=== PATIENT | female | born 1960 | race Caucasian/White ===

== ENCOUNTER 2017-03-30 14:36 | Emergency (ER) | payer OTHER ==
[2017-03-30 15:26] LABS: Hematocrit 37.2 % (37.0-47.0); Hemoglobin 12.9 gm/dL (12.5-16.0); Mean Cell Volume 92.5 fl (78-100); Mean Corpuscular Hemoglobin 32.1 pg (27-31); Mean Corpuscular Hgb Conc 34.7 g/dl (32-36); Mean Platelet Volume 10.3 fl (6.0-9.5); Neutrophil # 4.3 K/mm3 (1.3-6.0); Neutrophil % 63.2 % (42-75.0); Platelet Count 91 K/mm3 (150-450); Red Blood Count 4.02 M/mm3 (4.2-5.4); Red Cell Distribution Width 13.2 % (11.5-14.0); White Blood Count 6.8 K/mm3 (4.0-10.5)
[2017-03-30 15:44] LABS: Anion Gap 17.4 mmol/L (6.8-13.8); Bilirubin, Total 1.1 mg/dL (0.0-1.1); Ca. Corrected For Albumin 8.4 mg/dL (8.4-10.2); Calcium * 8.7 mg/dL (7.9-10.9); Potassium 3.4 mmol/L (3.4-4.6); Total Protein 7.9 gm/dL (6.2-8.2)
--- NOTE | 2017-03-30 15:53 | ERNOTE ---
Syncope ER HPI Date of Service: 03/30/17 Stated Complaint: SYNCOPAL Time Seen by Provider: 03/30/17 14:52 Source: patient, RN notes reviewed Exam Limitations: no limitations Immunizations: IMMUNIZATION HX Immunizations Up to Date Yes History of Influenza Vaccine No Hx Pneumococcal Vaccination No Allergies/Adverse Reactions: Allergies No Known Allergies Allergy (Verified 03/30/17 14:39) Home Medications: HOME MEDICATIONS Multivitamin [Multivitamins] 1 each PO DAILY 03/30/17 [Last Taken Unknown] - History of Present Illness Narrative: 56 y/o female brought to the ED by her for a syncopal episode. She was stung by a bee on her right middle finger. She began to feel funny and sat down. She passed out briefly at the table. She came to quickly and then passed out again for a few seconds. She denies any injury d/t the syncope. It was witnessed by her . She denies any history of prior syncopal episodes. She has had a large local reaction to a bee sting on her face in the remote past , but has never had anaphylactic type symptoms. She reports having 2 beers today and having eaten a sandwich not long before the episode. Prior Episodes: Present: no prior history Symptoms prior to episode: Present: light headedness Activity at time of episode: Present: sitting Character of event: Present: brief (seconds) Current Symptoms: Present: back to normal Prior Treament: Denies: recently seen Review of Systems - Review of Systems Constitutional: Absent: recent illness, fever, chills, fatigue, malaise EYE: Absent: eye pain, vision changes ENT: Present: no symptoms reported Respiratory: Absent: shortness of breath, cough Cardiology: Absent: chest pain, palpitations Gastrointestinal/Abdominal: Absent: nausea, vomiting, diarrhea, abdominal pain Genitourinary: Present: no symptoms reported Musculoskeletal: Absent: muscle pain, joint pain Skin: Absent: rash, lesions, lumps, change in color Neurological: Absent: headache, weakness Endocrine: Present: no symptoms reported Hematologic/Lymphatic: Present: no symptoms reported Psych: Absent: anxiety, depressed - Patient's Past Medical History Patient History - Medical: No pertinent hx Patient History - Cardiac/Respiratory: No pertinent hx Patient History - Cancer: No Hx of Cancer Patient History - Surgical Procedures: Cholecystectomy Patient History - Other: None LMP (females 10-50): Menopausal - Social History Living Situations: home Abuse History: No History of abuse Psych History: No pertinent hx Smoking Status: Never smoker Have you smoked in the past 12 months: No Do you dip or chew tobacco: No Alcohol Use: other Drug Use: none - Immunizations Immunizations Up to Date: Yes Hx Pneumococcal Vaccination: No History of Influenza Vaccine: No Physical Exam - Physical Exam General Appearance: Present: wd/wn, alert, no apparent distress Head Exam: Present: normal inspection, no evidence of injury Eye Exam: Normal inspection: bilateral, PERRL: bilateral Ears, Nose, Throat: Present: normal ENT inspection Neck: Present: normal inspection, nontender, supple, full range of motion Respiratory: Present: no respiratory distress, normal breath sounds, no accessory muscle use, lungs clear Cardiovascular/Chest: Present: regular rate, rhythm, no murmur, normal peripheral pulses Extremity Exam: Present: normal except - - erythema/edema to right middle finger Neurological Exam: Present: alert, oriented, normal mood/affect, no motor/ sensory deficits Skin Exam: Present: normal color, warm/dry ED Progress - Results and Orders Patient's Lab Results:: I have reviewed the patient's lab results. - Vital Signs Patient's Vital Signs:: I have reviewed the patient's vital signs. Vital Signs: Vital Signs 03/30/17 03/30/17 03/30/17 14:40 14:48 14:50 Temperature 37 C Pulse Rate 96 91 106 H Respiratory 16 Rate Blood Pressure 133/87 - EKG EKG: NSR EKG read: Reviewed by me - Progress/Reassessment Chief Complaint: Syncopal Episode Progress:: Improved Progress Note-Subjective: 03/30/17 16:05 Labwork and EKG are unremarkable. Patient is not orthostatic. Denies any respiratory difficulty or airway edema. Departure Clinical Impression: Bee sting Qualifiers: Encounter type: initial encounter Injury intent: accidental or unintentional Qualified Code(s): T63.441A - Toxic effect of venom of bees, accidental ( unintentional), initial encounter Episode of syncope Qualifiers: Syncope type: unspecified Qualified Code(s): R55 - Syncope and collapse - Departure Disposition: Home self-care Condition: Good Instructions: Syncope, [id number], Bee, Wasp, or Hornet Sting Additional Instructions: Ice to bee sting as needed Cortisone 10 cream and Benadryl cream may help with swelling/itching Referrals: Maria L Winslow MD [Primary Care Provider] -
[2017-03-30 16:14] VITALS: BP 135/93
== END 2017-03-30 16:07 | disposition home or self-care (01) ==
LOC: ER 14:36
DX: T63.441A Toxic effect of venom of bees, accidental (unintentional), initial encounter (principal); Y92.9 Unspecified place or not applicable; R55 Syncope and collapse

== ENCOUNTER 2019-04-13 11:51 | Inpatient (IN) ==
--- NOTE | 2019-04-13 12:10 | ERNOTE ---
Abdominal HPI - Narrative Date of Service: 04/13/19 - General Chief Complaint: Abdominal Pain Time Seen by Provider: 04/13/19 12:09 Source: patient Exam Limitations: no limitations - Immun/Allergies/Home Medications Immunizatons: IMMUNIZATION HX Immunizations Up to Date Yes History of Influenza Vaccine No Hx Pneumococcal Vaccination No Allergies/Adverse Reactions: Allergies No Known Allergies Allergy (Verified 05/13/18 10:07) Home Medications: HOME MEDICATIONS Multivitamin [Multivitamins] 1 ea PO DAILY 03/30/17 [Last Taken Unknown] acetaminophen 325 mg tablet 325 mg PO Q6H PRN 05/01/18 [Last Taken Unknown] - Pain Score Pain Score #1 Pain Score: 8 Abdominal Pain Onset Location: periumbilical Pain Radiation: RUQ, LUQ - History of Present Illness Narrative: The patient is a 58 year old female who presents for abdominal pain which has been present for 3 days. There are associated symptoms of umbilical hernia that appeared approximately 2 weeks ago, and tightness to RUQ and LUQ (similar to when they removed fluid from her abdomen), she was mildly short of breath upon awakening today, but this resolved shortly after onset with no intervention. The patient reports pain 8/10, and has progressively worsened ove r the last 3 days. There are no alleviating factors. Initially, patient made a splint for the hernia using 2 washers, a kleenex and packaging tape which helped, but now she feels this is causing more irritation. She has been taking extra strength Tylenol Q2H while awake since Saturday which is no longer managing the pain. There are aggravating factors of movement. Previous treatments have included: self made "splint" and extra strength Tylenol. The past medical history includes: biliary cirrhosis and ascites. The social history is positive for current alcohol use a few times a month. The patient has had no ill contacts. She denies nausea, vomiting, diarrhea, or constipation. Last BM this am. She does endorse decreased appetite. Timing: getting worse Quality: severe Activities at Onset: none Modifying Factors - (Improves): Present: analgesics - extra strength tylenol, other - patient made splint for hernia using 2 washers and packing tape which helped initally Modifying Factors - (Worsens): Present: movement Associated Symptoms: Present: denies symptoms - hernia noted 2 weeks ago, loss of appetite, shortness of breath - mild shortness of breath upon wakening, resolved without intervention, swelling/mass in abdomen. Absent: back pain, chest pain, diarrhea-gross blood, diarrhea-mucous, fever/chills, nausea, vomiting Prior Abdominal Problems: Present: other - biliary cirrhosis and ascites Review of Systems - Review of Systems Constitutional: Present: no symptoms reported. Absent: recent illness, fever, chills EYE: Present: other - coworkers noticed eyes were yellow ENT: Present: no symptoms reported Respiratory: Present: shortness of breath. Absent: cough Cardiology: Present: no symptoms reported. Absent: chest pain, palpitations, syncope Gastrointestinal/Abdominal: Present: abdominal pain, eating less. Absent: nausea, vomiting, diarrhea, constipation Genitourinary: Present: no symptoms reported. Absent: dysuria Musculoskeletal: Present: no symptoms reported Skin: Present: no symptoms reported Neurological: Present: no symptoms reported. Absent: dizziness/light- headedness, numbness, tingling Endocrine: Present: no symptoms reported Hematologic/Lymphatic: Present: no symptoms reported Psych: Present: no symptoms reported All Other Systems: All systems neg except as marked Medical History (Updated 04/13/19 @ 15:09 by NATALIA Pierre) History of ascites (Resolved) Onset Date: 08/19/14 Biliary cirrhosis (Resolved) Onset Date: Unknown Surgical History: Surgical History (Updated 04/29/18 @ 12:09 by Lisa Morel CMA) History of cholecystectomy Onset Date: ~2013 Family History: Family History (Updated 04/29/18 @ 12:10 by Lisa Morel CMA) Father , age 48 Myocardial infarction Mother , age 65 Heart disease Brother , age 55 Myocardial infarction Social History: (Last Reviewed 04/13/19 @ 13:06 by NATALIA Pierre) Social History: Marital status: Service: No Tobacco: Smoking Status: Never smoker Alcohol: alcohol intake: current alcohol intake frequency: a few times a month Substance Use: substance use type: does not use Dietary Habits: caffeine: No Physical Exam - Physical Exam General Appearance: Present: wd/wn, alert, no apparent distress Head Exam: Present: normal inspection Eye Exam: PERRL: bilateral, Scleral icterus: bilateral Neck: Present: normal inspection Respiratory: Present: no respiratory distress, normal breath sounds, no accessory muscle use, chest nontender, lungs clear Cardiovascular/Chest: Present: regular rate, rhythm Gastrointestinal/Abdominal: Present: tenderness - RUQ and periumbilical, abnormal bowel sounds - hyperactive, distended, hernia - umbilical, easily reduced, mildly tender, hepatomegaly Back Exam: Present: normal inspection Extremity Exam: Present: normal inspection Neurological Exam: Present: alert, oriented, normal mood/affect, no motor/sensory deficits Skin Exam: Present: jaundice Progress - Date and Time Seen: Date and Time: 04/13/19 13:43 Message left with nurse to discuss patient plan of care, awaiting return call. 04/13/19 13:57 Discussed case with , will admit if able to obtain diagnostic paracentesis for possible SBP. Discussed with and instructed to obtain US to review of ascites fluid. Also discussed patient risk due to low platelet count and elevation to INR. Will discuss risks along with benefits with patient prior to procedure if able. It was discussed with patient regarding risks for infection, perforation and bleeding with paracentesis procedure. 04/13/19 15:13 Fluid removed by during US guided paracentesis and orders placed for fluid to lab. Discussed with and will initiate antibiotic treatment while testing pending. Will admit for abdominal pain with ascites, abnormal electrolytes and UTI. - Results and Orders Patient's Lab Results:: I have reviewed the patient's lab results. - Vital Signs Patient's Vital Signs:: I have reviewed the patient's vital signs. Vital Signs: Vital Signs 04/13/19 11:56 Temperature 37.0 C Pulse Rate 104 H Respiratory Rate 16 Blood Pressure 149/84 H O2 Sat by Pulse Oximetry 99 - EKG EKG #1 EKG: NSR - rate 91, nonspecific ST T wave changes EKG read: Reviewed by me - X-Ray X-Ray #1 X-Ray: abdomen Interpretation: Reviewed by me X-ray Comments: IMPRESSION: 1. Air-fluid levels of the upper abdomen, which could represent localized ileus due to adjacent inflammatory changes, enteritis, and less likely mechanical obstruction. 2. Radiodense material within the distal small bowel/proximal colon as above. 3. Hepatomegaly suggested. 4. Additional comments are as above. Electronically signed by Hetal Rivas M.D. - CT/Ultrasound CT/Ultrasound Narrative: FINDINGS/IMPRESSION: Patient has mild to moderate ascites noted, with the largest pockets in the bilateral lower quadrants. Electronically signed by Hetal Rivas M.D.. - Progress/Reassessment Chief Complaint: Abdominal Pain Departure Clinical Impression: Hyponatremia, Hypokalemia Abdominal pain Qualifiers: Abdominal location: periumbilical Qualified Code(s): R10.33 - Periumbilical pain Ascites Qualifiers: Ascites type: other type Qualified Code(s): R18.8 - Other ascites Urinary tract infection Qualifiers: Urinary tract infection type: site unspecified Hematuria presence: without hematuria Qualified Code(s): N39.0 - Urinary tract infection, site not specified - Departure Disposition: Still a patient Condition: Stable Referrals: Maria L Winslow MD [Primary Care Provider] -
[2019-04-13 12:33] LABS: Hematocrit 29.6 % (37.0-47.0); Hemoglobin 10.4 gm/dL (12.5-16.0); Mean Cell Volume 102.4 fl (78-100); Mean Corpuscular Hgb Conc 35.1 g/dl (32-36); Mean Platelet Volume 12.1 fl (8-12.5); Neutrophil # 12.7 K/mm3 (1.3-6.0); Neutrophil % 86.6 % (42-75.0); Platelet Count 74 K/mm3 (150-450); Red Blood Count 2.89 M/mm3 (4.2-5.4); Red Cell Distribution Width 17.1 % (11.5-14.0); White Blood Count 14.6 K/mm3 (4.0-10.5)
[2019-04-13 12:49] LABS: Albumin * 2.8 gm/dl (3.4-5.0); Anion Gap 17.5 mmol/L (6.8-13.8); BUN/Creatinine Ratio 10.2 (9.0-21.6); Bilirubin, Total 16.7 mg/dL (0.0-1.1); Calcium * 8.4 mg/dL (7.9-10.9); Carbon Dioxide 21.4 mmol/L (24-32.6); Potassium 2.9 mmol/L (3.4-4.6); Total Protein 6.8 gm/dL (6.2-8.2)
[2019-04-13 13:10] LABS: Urine Bilirubin 6 mg/dl (NEGATIVE); Urine Blood 25 /ul (NEGATIVE); Urine Ketone 5 mg/dL (NEGATIVE); Urine Protein 30 mg/dL (NEGATIVE); Urine Urobilinogen 4 EU/dl (NORMAL); Urine pH 6.5 pH (5.0-7.0)
[2019-04-13 13:12] LABS: Urine Appearance Slightly Cloudy (CLEAR); Urine Color Orange; Urine Nitrite Positive (NEGATIVE)
[2019-04-13] MEDS ORDERED: NORMAL SALINE 1,000 ML IV PRN (13:12)
[2019-04-13 13:13] LABS: Urine Bacteria 2+; Urine RBC None Seen /hpf (0-5); Urine WBC 0-5 /hpf (0-5)
[2019-04-13 13:22] LABS: Prothrombin Time (Patient) 17.3 Seconds (9.1-10.7)
[2019-04-13 13:30] LABS: INR 1.79 INR (0.92-1.08); Partial Thrombolplastin Time 28.4 Seconds (24-32)
[2019-04-13] MEDS ORDERED: CEFOTAXIME SODIUM IV ONE (15:10)
[2019-04-13] MEDS ORDERED: WATER FOR INJECTION STERILE IV ONE (15:10)
[2019-04-13] MEDS: POTASSIUM CHLORIDE IN WATER 100 ML IV SCH ×4 (15:17→19:09)
[2019-04-13 15:36] LABS: Body Fluid WBC 129 /uL (0-1000)
[2019-04-13 16:01] LABS: Body Fluid Appearance SLIGHTLY CLOUDY (CLEAR)
[2019-04-13 16:02] LABS: Body Fluid Color YELLOW (COLORLESS)
--- NOTE | 2019-04-13 17:50 | HP ---
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 4 days prior to admission the patient started having some dull, lower abdominal pain, 2-3 over 10, not associated with nausea, vomiting, diarrhea, or constipation. Her last bowel movement was this morning. Her friend also noticed that she was getting yellowish on her eyes. Today her pain got worse 8- 9/10 and she noticed her umbilical hernia which she noticed 2 weeks ago popped out even more. She went to our emergency room where her hernia was reduced easily. Her white blood cell count was elevated, AST and alkaline phosphatase were elevated, ALT was normal but her total bilirubin was 16.7. She was noted to have a distended abdomen. Her ultrasound showed moderate ascites and paracentesis was done and they were able to remove 180 mL of fluid. She was then admitted for further evaluation and treatment. Medical History (Updated 04/13/19 @ 17:59 by Quique Esquivel MD) History of ascites (Resolved) Onset Date: 08/19/14 Biliary cirrhosis (Resolved) Onset Date: Unknown Surgical History: Surgical History (Updated 04/13/19 @ 17:50 by Quique Esquivel MD) History of cholecystectomy Onset Date: ~2013 Family History: Family History (Updated 04/29/18 @ 12:10 by Lisa Morel CMA) Father , age 48 Myocardial infarction Mother , age 65 Heart disease Brother , age 55 Myocardial infarction Social History: (Last Reviewed 04/13/19 @ 16:26 by Kayla Matthews RN) Social History: Marital status: Service: No Tobacco: Smoking Status: Never smoker Alcohol: alcohol intake: current alcohol intake frequency: a few times a month Substance Use: substance use type: does not use Dietary Habits: caffeine: No Review Of Systems (GEN) - Review of Systems Generalized/Overall Review: Absent: Weakness, Chills EENTM: Absent: Blurred Vision Respiratory: Absent: Cough, Shortness of Breath, Orthopnea, Wheezing Cardiac: Absent: Chest Pain, Edema, Palpitations Abdominal: Present: Abdominal Pain. Absent: Nausea, Vomiting, Hematemesis, Diarrhea, Melena Genitourinary: Absent: Urgency, Frequency Musculoskeletal: Absent: Joint Pain, Back Pain Neurological: Absent: Headache Skin: Absent: Lesions, Rash Endocrine: Absent: Intolerance to Cold, Intolerance to Heat Misc: All systems neg except as marked Immunizations: IMMUNIZATION HX Immunizations Up to Date Yes History of Influenza Vaccine No Hx Pneumococcal Vaccination No Allergies/Adverse Reactions: Allergies Allergy/AdvReac Type Severity Reaction Status Date / Time No Known Allergies Allergy Verified 05/13/18 10:07 Home Medications: HOME MEDICATIONS Multivitamin [Multivitamins] 1 ea PO DAILY 03/30/17 [Last Taken 04/12/19] acetaminophen 325 mg tablet 325 mg PO Q6H PRN 05/01/18 [Last Taken 04/13/19] Exam - Exam Vital Signs: Vital Signs - Last Taken Temp 36.9 C 04/13/19 16:41 Pulse 93 04/13/19 16:41 Resp 18 04/13/19 16:41 BP 129/62 04/13/19 16:41 Pulse Ox 99 04/13/19 16:41 Constitutional: Present: Alert, Oriented x3, Cooperative ENT Exam: Present: hearing grossly normal Eye Exam: bilateral eye: normal inspection, PERRL, EOMI, scleral icterus Neck: Present: supple. Absent: lymphadenopathy (R), lymphadenopathy (L) Respiratory: Present: decreased breath sounds, No rales, No wheezing Cardiovascular/Chest: Present: regular rate, rhythm, no JVD, no murmur Abdomen: Present: tender - oower abdominal area, firm, negative Alberts sign, other - positive ascites, distended, hernia - umbilical , remans reduced. Absent: rebound tenderness Extremity: Present: no calf tenderness, pedal edema Diagnostic Studies: Abnormal Lab Results 04/13/19 04/13/19 04/13/19 Range/Units 12:30 12:30 12:30 WBC 14.6 H (4.0-10.5) K/mm3 RBC 2.89 L (4.2-5.4) M/mm3 Hgb 10.4 L (12.5-16.0) gm/dL Hct 29.6 L (37.0-47.0) % MCV 102.4 H (78-100) fl MCH 36.0 H (27-31) pg RDW 17.1 H (11.5-14.0) % Plt Count 74 L (150-450) K/mm3 Immature Gran % (Auto) 0.70 H (0.001-0.429) % Immature Gran # (Auto) 0.10 H (0.000-0.0310) K/mm3 Neutrophils % 86.6 H (42-75.0) % Lymphocytes % 5.9 L (20-51) % Neutrophils # 12.7 H (1.3-6.0) K/mm3 Lymphocytes # 0.87 L (1.5-3.5) k/mm3 PT 17.3 H (9.1-10.7) Seconds INR (Anticoag Therapy) 1.79 H (0.92-1.08) INR Sodium 128 L (132-142) mmol/L Plasma Sodium 128 L (130-142) mmol/L Potassium 2.9 L (3.4-4.6) mmol/L Chloride 92 L (97-106) mmol/L Carbon Dioxide 21.4 L (24-32.6) mmol/L Anion Gap 17.5 H (6.8-13.8) mmol/L Random Glucose 114 H (70-110) mg/dL Total Bilirubin 16.7 H (0.0-1.1) mg/dL AST 166 H (0-48) U/L Alkaline Phosphatase 227 H (50-170) U/L Albumin 2.8 L (3.4-5.0) gm/dl Urine Protein (NEGATIVE) mg/dL Urine Glucose (UA) (NEGATIVE) mg/dL Urine Blood (NEGATIVE) /ul Urine Nitrate (NEGATIVE) Urine Bilirubin (NEGATIVE) mg/dl Urine Urobilinogen (NORMAL) EU/dl Ur Leukocyte Esterase (NEGATIVE) /ul Ur Epithelial Cells (0-5) /hpf Urine Bacteria (NONE) Fluid RBC (0-1000) /uL 04/13/19 04/13/19 Range/Units 12:40 14:47 WBC (4.0-10.5) K/mm3 RBC (4.2-5.4) M/mm3 Hgb (12.5-16.0) gm/dL Hct (37.0-47.0) % MCV (78-100) fl MCH (27-31) pg RDW (11.5-14.0) % Plt Count (150-450) K/mm3 Immature Gran % (Auto) (0.001-0.429) % Immature Gran # (Auto) (0.000-0.0310) K/mm3 Neutrophils % (42-75.0) % Lymphocytes % (20-51) % Neutrophils # (1.3-6.0) K/mm3 Lymphocytes # (1.5-3.5) k/mm3 PT (9.1-10.7) Seconds INR (Anticoag Therapy) (0.92-1.08) INR Sodium (132-142) mmol/L Plasma Sodium (130-142) mmol/L Potassium (3.4-4.6) mmol/L Chloride (97-106) mmol/L Carbon Dioxide (24-32.6) mmol/L Anion Gap (6.8-13.8) mmol/L Random Glucose (70-110) mg/dL Total Bilirubin (0.0-1.1) mg/dL AST (0-48) U/L Alkaline Phosphatase (50-170) U/L Albumin (3.4-5.0) gm/dl Urine Protein 30 H (NEGATIVE) mg/dL Urine Glucose (UA) 100 H (NEGATIVE) mg/dL Urine Blood 25 H (NEGATIVE) /ul Urine Nitrate Positive H (NEGATIVE) Urine Bilirubin 6 H (NEGATIVE) mg/dl Urine Urobilinogen 4 H (NORMAL) EU/dl Ur Leukocyte Esterase 75 H (NEGATIVE) /ul Ur Epithelial Cells 10-25 H (0-5) /hpf Urine Bacteria 2+ H (NONE) Fluid RBC Greater than 1000.0 H (0-1000) /uL Microbiology 04/13/19 14:47 Gram Stain - Final Peritoneal Fluid Laboratory Results WBC 14.6 K/mm3 (4.0-10.5) H 04/13/19 12:30 RBC 2.89 M/mm3 (4.2-5.4) L 04/13/19 12:30 Hgb 10.4 gm/dL (12.5-16.0) L 04/13/19 12:30 Hct 29.6 % (37.0-47.0) L 04/13/19 12:30 MCV 102.4 fl (78-100) H 04/13/19 12:30 MCH 36.0 pg (27-31) H 04/13/19 12:30 MCHC 35.1 g/dl (32-36) 04/13/19 12:30 RDW 17.1 % (11.5-14.0) H 04/13/19 12:30 Plt Count 74 K/mm3 (150-450) L 04/13/19 12:30 MPV 12.1 fl (8-12.5) 04/13/19 12:30 Immature Gran % (Auto) 0.70 % (0.001-0.429) H 04/13/19 12:30 Immature Gran # (Auto) 0.10 K/mm3 (0.000-0.0310) H 04/13/19 12:30 86.6 % (42-75.0) H 04/13/19 12:30 5.9 % (20-51) L 04/13/19 12:30 6.5 % (0.0-9) 04/13/19 12:30 0.0 % (0.0-3.0) 04/13/19 12:30 0.3 % (0.0-1.0) 04/13/19 12:30 Nucleated RBC % 0.0 k/mm3 (0-1) 04/13/19 12:30 12.7 K/mm3 (1.3-6.0) H 04/13/19 12:30 0.87 k/mm3 (1.5-3.5) L 04/13/19 12:30 1.0 k/mm3 (0.0-1.0) 04/13/19 12:30 0.0 k/mm3 (0.0-0.7) 04/13/19 12:30 Absolute Basophils 0.0 k/mm3 (0.0-0.1) 04/13/19 12:30 PT 17.3 Seconds (9.1-10.7) H 04/13/19 12:30 INR (Anticoag Therapy) 1.79 INR (0.92-1.08) H 04/13/19 12:30 PTT (Debra) 28.4 Seconds (24-32) 04/13/19 12:30 Sodium 128 mmol/L (132-142) L 04/13/19 12:30 128 mmol/L (130-142) L 04/13/19 12:30 Potassium 2.9 mmol/L (3.4-4.6) L 04/13/19 12:30 Chloride 92 mmol/L (97-106) L 04/13/19 12:30 Carbon Dioxide 21.4 mmol/L (24-32.6) L 04/13/19 12:30 17.5 mmol/L (6.8-13.8) H 04/13/19 12:30 BUN 6 mg/dL (3-23) 04/13/19 12:30 0.59 mg/dL (0.4-1.4) 04/13/19 12:30 Est GFR (Non-Af Amer) 112 mL/min (60-130) D 04/13/19 12:30 10.2 (9.0-21.6) 04/13/19 12:30 114 mg/dL (70-110) H 04/13/19 12:30 Calcium 8.4 mg/dL (7.9-10.9) 04/13/19 12:30 Calcium Adj for Albumin 9.0 mg/dL (8.4-10.2) 04/13/19 12:30 16.7 mg/dL (0.0-1.1) H 04/13/19 12:30 AST 166 U/L (0-48) H 04/13/19 12:30 ALT 20 U/L (19-67) 04/13/19 12:30 227 U/L (50-170) H 04/13/19 12:30 Less than 17.0 mcmol/L (11-35) 04/13/19 12:30 6.8 gm/dL (6.2-8.2) 04/13/19 12:30 2.8 gm/dl (3.4-5.0) L 04/13/19 12:30 Amylase 29 U/L (25-115) 04/13/19 12:30 242 U/L (73-393) 04/13/19 12:30 Sanders 04/13/19 12:40 Slightly cloudy (CLEAR) 04/13/19 12:40 6.5 pH (5.0-7.0) 04/13/19 12:40 Ur Specific [place] 1.020 SP.GR. (1.005-1.010) 04/13/19 12:40 30 mg/dL (NEGATIVE) H 04/13/19 12:40 100 mg/dL (NEGATIVE) H 04/13/19 12:40 5 mg/dL (NEGATIVE) 04/13/19 12:40 25 /ul (NEGATIVE) H 04/13/19 12:40 Positive (NEGATIVE) H 04/13/19 12:40 6 mg/dl (NEGATIVE) H 04/13/19 12:40 QNS 04/13/19 12:40 Prot Sulfosalicylic Acd QNS 04/13/19 12:40 4 EU/dl (NORMAL) H 04/13/19 12:40 Ur Leukocyte Esterase 75 /ul (NEGATIVE) H 04/13/19 12:40 None seen /hpf (0-5) 04/13/19 12:40 0-5 /hpf (0-5) 04/13/19 12:40 Ur Epithelial Cells 10-25 /hpf (0-5) H 04/13/19 12:40 2+ (NONE) H 04/13/19 12:40 Culture to follow 04/13/19 12:40 Fluid Color Yellow (COLORLESS) 04/13/19 14:47 Fluid Appearance Slightly cloudy (CLEAR) 04/13/19 14:47 Fluid WBC 129 /uL (0-1000) 04/13/19 14:47 Fluid RBC Greater than 1000.0 /uL (0-1000) H 04/13/19 14:47 Fluid Neutrophils 4 % 04/13/19 14:47 Fluid Lymphocytes 96 % 04/13/19 14:47 Fluid Glucose 120 mg/dL 04/13/19 14:47 Fluid Total Protein 2.6 mg/dL 04/13/19 14:47 Peritoneal Albumin 1.3 gm/dL 04/13/19 14:47 Peritoneal LDH 82 U/L 04/13/19 14:47 Spec. sent to path. 04/13/19 14:47 Assessment/Plan - Narrative Narrative: We will cover patient with an IV antibiotic for possible SBP and this will also cover her UTI. She had an ultrasound of her abdomen which showed mild to moderate ascites but did not mention any thing about her liver and biliary tracts. She has a history of cholecystectomy. Will await results of her paracentesis. We will get a CT scan of the abdomen and pelvis in the morning. She has mild hyponatremia and hypokalemia which most likely are due to her ascites. Her thrombocytopenia secondary to her liver cirrhosis/fibrosis. She said that she was diagnosed with steatohepatitis 2 years ago and they did do a biopsy of her liver when they did a cholecystectomy but she was never told of the results. She does not recall her doctors in [facility] clinics telling her that she has liver cirrhosis. She did drink a six pack of beers in the past but quit 2 years ago. Will add lipid profile to her labs. - Assessment/Plan (1) Abdominal pain Problem: Acute Qualifiers: Abdominal location: periumbilical Qualified Code(s): R10.33 - Periumbilical pain (2) Ascites Assessment: r/o SBP Problem: Acute Qualifiers: Ascites type: other type Qualified Code(s): R18.8 - Other ascites (3) Leukocytosis Problem: Acute (4) Hypokalemia Problem: Acute (5) Hyponatremia Problem: Acute (6) Thrombocytopenia Problem: Acute (7) Biliary cirrhosis Problem: Resolved (8) Urinary tract infection Problem: Acute Qualifiers: Urinary tract infection type: site unspecified Hematuria presence: without hematuria Qualified Code(s): N39.0 - Urinary tract infection, site not specified (9) Umbilical hernia Problem: Resolved Qualifiers: Obstruction and gangrene presence: without obstruction or gangrene Qualified Code(s): K42.9 - Umbilical hernia without obstruction or gangrene
[2019-04-13] MEDS ORDERED: ACETAMINOPHEN 325 MG TABLET PO PRN (18:00)
[2019-04-13] MEDS: CALCIUM CARBONATE 500 MG TAB.CHEW PO PRN (20:52)
[2019-04-13] MEDS: POTASSIUM CHLORIDE 20 MEQ in NORMAL SALINE 1,000 ML IV SCH (21:09)
[2019-04-14] MEDS ORDERED: DIATRIZOATE MEGLUMINE, SODIUM 30 ML BTL PO ONE (05:41)
[2019-04-14 05:44] LABS: Prothrombin Time (Patient) 16.9 Seconds (9.1-10.7)
--- NOTE | 2019-04-14 05:52 | PATH ---
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 Patient is seen in the [facility] emergency room and admitted for dull abdominal pain. Abdominal ultrasound showed ascites and he underwent ultrasound directed paracentesis. Operative findings: 180 cc of slightly cloudy turbid yellow fluid. Serum ascites albumin gradient: 2.8 g/dL -1.3 g/dL = 1.5 g/dl, elevated gradient consistent with liver disease. Peritoneal fluid protein/serum fluid protein 2.6 g/dL/6.8 g/dL=.38 consistent with transudate. GROSS DESCRIPTION: Specimen is received three 60 cc syringes appropriately designated, "left lower quadrant ascites." The specimen consists of 180 cc of cloudy yellow fluid. An 80 cc aliquot is processed with an equal volume of cytospin fixative and cytospin's are stained with Pap smear. A cell block is processed for H&E evaluation. DIAGNOSIS: PERITONEAL CAVITY, ASCITES FLUID, PARACENTESIS: -BENIGN REACTIVE CHANGES IN AN LOW CELLULARITY TRANSUDATE COMMENT: Cytospin's and cell block show abundant proteinaceous debris, rare lymphocytes, some mesothelial cells, some histiocytes, rare PMNs and rare RBCs. On the basis of protein and albumin studies studies of ascites fluid, the findings are a transudate with an elevated albumin gradient consistent with the clinical history of liver disease due to MEJIA. Case findings are communicated with Dr. Esquivel on 04/14/2019 by text messaging.
[2019-04-14 05:53] LABS: Hematocrit 25.8 % (37.0-47.0); Hemoglobin 9.1 gm/dL (12.5-16.0); Mean Cell Volume 102.4 fl (78-100); Mean Corpuscular Hemoglobin 36.1 pg (27-31); Mean Corpuscular Hgb Conc 35.3 g/dl (32-36); Neutrophil # 6.8 K/mm3 (1.3-6.0); Neutrophil % 80.9 % (42-75.0); Red Blood Count 2.52 M/mm3 (4.2-5.4); Red Cell Distribution Width 17.2 % (11.5-14.0); White Blood Count 8.4 K/mm3 (4.0-10.5)
[2019-04-14 06:03] LABS: INR 1.74 INR (0.92-1.08)
[2019-04-14 06:18] LABS: Albumin * 2.3 gm/dl (3.4-5.0); Anion Gap 16.7 mmol/L (6.8-13.8); Bilirubin, Total 13.7 mg/dL (0.0-1.1); Ca. Corrected For Albumin 8.7 mg/dL (8.4-10.2); Calcium * 7.7 mg/dL (7.9-10.9); Carbon Dioxide 20.2 mmol/L (24-32.6); Potassium 2.9 mmol/L (3.4-4.6); Total Protein 5.7 gm/dL (6.2-8.2)
[2019-04-14 06:27] LABS: Platelet Count 64 K/mm3 (150-450)
[2019-04-14 06:30] LABS: Chol/HDL Risk Ratio 32.3 mg/dL (3.3-4.4)
[2019-04-14] MEDS: POTASSIUM CHLORIDE 20 MEQ in NORMAL SALINE 1,000 ML IV SCH ×2 (07:09→17:20)
--- NOTE | 2019-04-14 10:25 | PN ---
Subjective - Date and Time Seen Date: 04/14/19 Time: 10:13 Subjective Narrative: Patient is feeling better. WBC is back to normal. Objective - Review of Systems Generalized/Overall Review: Denies: Weakness, Chills, Fever EENTM: Denies: Blurred Vision Respiratory: Denies: Cough, Shortness of Breath Cardiac: Denies: Chest Pain, Edema, Palpitations Abdominal: Reports: Abdominal Pain - resolved. Denies: Nausea, Vomiting Genitourinary Symptoms: Denies: Urgency, Frequency Neurological: Denies: Headache Skin: Denies: Lesions, Rash Endocrine: Denies: Intolerance to Cold, Intolerance to Heat Misc: All systems neg except as marked - Vitals Vitals: Last Vital Signs Temp 37.1 C 04/14/19 07:52 Pulse 86 04/14/19 07:52 Resp 18 04/14/19 07:52 BP 120/77 04/14/19 07:52 Pulse Ox 98 04/14/19 07:52 - Abnormal Lab Findings Abnormal Lab Findings: Abnormal Lab Results 04/13/19 04/13/19 04/13/19 Range/Units 12:30 12:30 12:30 WBC 14.6 H (4.0-10.5) K/mm3 RBC 2.89 L (4.2-5.4) M/mm3 Hgb 10.4 L (12.5-16.0) gm/dL Hct 29.6 L (37.0-47.0) % MCV 102.4 H (78-100) fl MCH 36.0 H (27-31) pg RDW 17.1 H (11.5-14.0) % Plt Count 74 L (150-450) K/mm3 Immature Gran % (Auto) 0.70 H (0.001-0.429) % Immature Gran # (Auto) 0.10 H (0.000-0.0310) K/mm3 Neutrophils % 86.6 H (42-75.0) % Lymphocytes % 5.9 L (20-51) % Neutrophils # 12.7 H (1.3-6.0) K/mm3 Lymphocytes # 0.87 L (1.5-3.5) k/mm3 PT 17.3 H (9.1-10.7) Seconds INR (Anticoag Therapy) 1.79 H (0.92-1.08) INR Sodium 128 L (132-142) mmol/L Plasma Sodium 128 L (130-142) mmol/L Potassium 2.9 L (3.4-4.6) mmol/L Chloride 92 L (97-106) mmol/L Carbon Dioxide 21.4 L (24-32.6) mmol/L Anion Gap 17.5 H (6.8-13.8) mmol/L Est GFR (Non-Af Amer) (60-130) mL/min Random Glucose 114 H (70-110) mg/dL Calcium (7.9-10.9) mg/dL Total Bilirubin 16.7 H (0.0-1.1) mg/dL Direct Bilirubin (0.0-0.3) mg/dL AST 166 H (0-48) U/L ALT (19-67) U/L Alkaline Phosphatase 227 H (50-170) U/L Total Protein (6.2-8.2) gm/dL Albumin 2.8 L (3.4-5.0) gm/dl Triglycerides (30-200) mg/dL Cholesterol (0-200) mg/dL LDL Cholesterol (70-130) mg/dL VLDL Cholesterol (5-40) mg/dL HDL Cholesterol (40-60) mg/dL Cholesterol/HDL Ratio (3.3-4.4) mg/dL Urine Protein (NEGATIVE) mg/dL Urine Glucose (UA) (NEGATIVE) mg/dL Urine Blood (NEGATIVE) /ul Urine Nitrate (NEGATIVE) Urine Bilirubin (NEGATIVE) mg/dl Urine Urobilinogen (NORMAL) EU/dl Ur Leukocyte Esterase (NEGATIVE) /ul Ur Epithelial Cells (0-5) /hpf Urine Bacteria (NONE) Fluid RBC (0-1000) /uL Acetaminophen (10.0-30.0) mcg/mL 04/13/19 04/13/19 04/13/19 Range/Units 12:40 14:47 15:15 WBC (4.0-10.5) K/mm3 RBC (4.2-5.4) M/mm3 Hgb (12.5-16.0) gm/dL Hct (37.0-47.0) % MCV (78-100) fl MCH (27-31) pg RDW (11.5-14.0) % Plt Count (150-450) K/mm3 Immature Gran % (Auto) (0.001-0.429) % Immature Gran # (Auto) (0.000-0.0310) K/mm3 Neutrophils % (42-75.0) % Lymphocytes % (20-51) % Neutrophils # (1.3-6.0) K/mm3 Lymphocytes # (1.5-3.5) k/mm3 PT (9.1-10.7) Seconds INR (Anticoag Therapy) (0.92-1.08) INR Sodium (132-142) mmol/L Plasma Sodium (130-142) mmol/L Potassium (3.4-4.6) mmol/L Chloride (97-106) mmol/L Carbon Dioxide (24-32.6) mmol/L Anion Gap (6.8-13.8) mmol/L Est GFR (Non-Af Amer) (60-130) mL/min Random Glucose (70-110) mg/dL Calcium (7.9-10.9) mg/dL Total Bilirubin (0.0-1.1) mg/dL Direct Bilirubin 14.7 H (0.0-0.3) mg/dL AST (0-48) U/L ALT (19-67) U/L Alkaline Phosphatase (50-170) U/L Total Protein (6.2-8.2) gm/dL Albumin (3.4-5.0) gm/dl Triglycerides (30-200) mg/dL Cholesterol (0-200) mg/dL LDL Cholesterol (70-130) mg/dL VLDL Cholesterol (5-40) mg/dL HDL Cholesterol (40-60) mg/dL Cholesterol/HDL Ratio (3.3-4.4) mg/dL Urine Protein 30 H (NEGATIVE) mg/dL Urine Glucose (UA) 100 H (NEGATIVE) mg/dL Urine Blood 25 H (NEGATIVE) /ul Urine Nitrate Positive H (NEGATIVE) Urine Bilirubin 6 H (NEGATIVE) mg/dl Urine Urobilinogen 4 H (NORMAL) EU/dl Ur Leukocyte Esterase 75 H (NEGATIVE) /ul Ur Epithelial Cells 10-25 H (0-5) /hpf Urine Bacteria 2+ H (NONE) Fluid RBC Greater than 1000.0 H (0-1000) /uL Acetaminophen (10.0-30.0) mcg/mL 04/13/19 04/14/19 04/14/19 Range/Units 22:10 05:31 05:31 WBC (4.0-10.5) K/mm3 RBC 2.52 L (4.2-5.4) M/mm3 Hgb 9.1 L (12.5-16.0) gm/dL Hct 25.8 L (37.0-47.0) % MCV 102.4 H (78-100) fl MCH 36.1 H (27-31) pg RDW 17.2 H (11.5-14.0) % Plt Count 64 L (150-450) K/mm3 Immature Gran % (Auto) 0.60 H (0.001-0.429) % Immature Gran # (Auto) 0.05 H (0.000-0.0310) K/mm3 Neutrophils % 80.9 H (42-75.0) % Lymphocytes % 9.0 L (20-51) % Neutrophils # 6.8 H (1.3-6.0) K/mm3 Lymphocytes # 0.76 L (1.5-3.5) k/mm3 PT (9.1-10.7) Seconds INR (Anticoag Therapy) (0.92-1.08) INR Sodium (132-142) mmol/L Plasma Sodium (130-142) mmol/L Potassium 2.9 L (3.4-4.6) mmol/L Chloride (97-106) mmol/L Carbon Dioxide 20.2 L (24-32.6) mmol/L Anion Gap 16.7 H (6.8-13.8) mmol/L Est GFR (Non-Af Amer) 175 H D (60-130) mL/min Random Glucose (70-110) mg/dL Calcium 7.7 L (7.9-10.9) mg/dL Total Bilirubin 13.7 H (0.0-1.1) mg/dL Direct Bilirubin (0.0-0.3) mg/dL AST 119 H (0-48) U/L ALT 17 L (19-67) U/L Alkaline Phosphatase 184 H (50-170) U/L Total Protein 5.7 L (6.2-8.2) gm/dL Albumin 2.3 L (3.4-5.0) gm/dl Triglycerides 276 H (30-200) mg/dL Cholesterol 259 H (0-200) mg/dL LDL Cholesterol 196 H (70-130) mg/dL VLDL Cholesterol 55 H (5-40) mg/dL HDL Cholesterol 8 L (40-60) mg/dL Cholesterol/HDL Ratio 32.3 H (3.3-4.4) mg/dL Urine Protein (NEGATIVE) mg/dL Urine Glucose (UA) (NEGATIVE) mg/dL Urine Blood (NEGATIVE) /ul Urine Nitrate (NEGATIVE) Urine Bilirubin (NEGATIVE) mg/dl Urine Urobilinogen (NORMAL) EU/dl Ur Leukocyte Esterase (NEGATIVE) /ul Ur Epithelial Cells (0-5) /hpf Urine Bacteria (NONE) Fluid RBC (0-1000) /uL Acetaminophen Less than 0.2 L (10.0-30.0) mcg/mL 04/14/19 Range/Units 05:31 WBC (4.0-10.5) K/mm3 RBC (4.2-5.4) M/mm3 Hgb (12.5-16.0) gm/dL Hct (37.0-47.0) % MCV (78-100) fl MCH (27-31) pg RDW (11.5-14.0) % Plt Count (150-450) K/mm3 Immature Gran % (Auto) (0.001-0.429) % Immature Gran # (Auto) (0.000-0.0310) K/mm3 Neutrophils % (42-75.0) % Lymphocytes % (20-51) % Neutrophils # (1.3-6.0) K/mm3 Lymphocytes # (1.5-3.5) k/mm3 PT 16.9 H (9.1-10.7) Seconds INR (Anticoag Therapy) 1.74 H (0.92-1.08) INR Sodium (132-142) mmol/L Plasma Sodium (130-142) mmol/L Potassium (3.4-4.6) mmol/L Chloride (97-106) mmol/L Carbon Dioxide (24-32.6) mmol/L Anion Gap (6.8-13.8) mmol/L Est GFR (Non-Af Amer) (60-130) mL/min Random Glucose (70-110) mg/dL Calcium (7.9-10.9) mg/dL Total Bilirubin (0.0-1.1) mg/dL Direct Bilirubin (0.0-0.3) mg/dL AST (0-48) U/L ALT (19-67) U/L Alkaline Phosphatase (50-170) U/L Total Protein (6.2-8.2) gm/dL Albumin (3.4-5.0) gm/dl Triglycerides (30-200) mg/dL Cholesterol (0-200) mg/dL LDL Cholesterol (70-130) mg/dL VLDL Cholesterol (5-40) mg/dL HDL Cholesterol (40-60) mg/dL Cholesterol/HDL Ratio (3.3-4.4) mg/dL Urine Protein (NEGATIVE) mg/dL Urine Glucose (UA) (NEGATIVE) mg/dL Urine Blood (NEGATIVE) /ul Urine Nitrate (NEGATIVE) Urine Bilirubin (NEGATIVE) mg/dl Urine Urobilinogen (NORMAL) EU/dl Ur Leukocyte Esterase (NEGATIVE) /ul Ur Epithelial Cells (0-5) /hpf Urine Bacteria (NONE) Fluid RBC (0-1000) /uL Acetaminophen (10.0-30.0) mcg/mL - Exam Constitutional: Present: Alert, Oriented x3, Cooperative ENT Exam: Present: hearing grossly normal Neck: Present: supple Respiratory: Present: normal breath sounds, No rales, No wheezing Cardiovascular/Chest: Present: regular rate, rhythm, no JVD, no murmur Abdomen: Present: Normal bowel sounds, nontender, firm, negative Alberts sign, distended Extremity: Present: no calf tenderness. Absent: lower extremity edema Neurologic: Present: oracle sql developer II-XII nml as tested, no motor/sensory deficits, oriented x 3 Assessment/Plan Plan Narrative: Her ascitic fluid although blood and slightly cloudy showed white blood cell count of less than 500, polymorphonucleocytes of less than 250, serum ascitic albumin gradient of greater than or equal to 1.1, which likely is more of a transudate and without SBP. Cytology showed no evidence of malignant cells. We will continue with Rocephin for her possible UTI and was sent additional labs for ALICE and alpha-fetoprotein. We will follow-up her CT scan of the abdomen and pelvis. We will start her on statin medication for her cholesterol levels and possibility that this is MEJIA. - Problems/Diagnosis (1) Abdominal pain Problem: Acute Qualifiers: Abdominal location: periumbilical Qualified Code(s): R10.33 - Periumbilical pain (2) Ascites Problem: Acute Qualifiers: Ascites type: other type Qualified Code(s): R18.8 - Other ascites Narrative: transudate (3) Leukocytosis Problem: Resolved (4) Hypokalemia Problem: Acute Narrative: will start her on Klorcon 40 meq PO BID and do K rider todya. continiue with IVF with 20 meq of KCl at 100 ml/hour. 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 lipid levels are elvated, will start her on statin. (8) Urinary tract infection Problem: Acute Qualifiers: Urinary tract infection type: site unspecified Hematuria presence: without hematuria Qualified Code(s): N39.0 - Urinary tract infection, site not specified Narrative: continue with IV antibiotic (9) Umbilical hernia Problem: Chronic Qualifiers: Obstruction and gangrene presence: without obstruction or gangrene Qualified Code(s): K42.9 - Umbilical hernia without obstruction or gangrene
[2019-04-14] MEDS: POTASSIUM CHLORIDE IN WATER 100 ML IV SCH ×2 (11:05→12:17)
[2019-04-14] MEDS: CALCIUM CARBONATE 500 MG TAB.CHEW PO PRN (13:29)
[2019-04-14] MEDS: POTASSIUM CHLORIDE 10 MEQ TABLET.SA PO SCH (17:13)
[2019-04-15] MEDS: POTASSIUM CHLORIDE 20 MEQ in NORMAL SALINE 1,000 ML IV SCH (02:37)
[2019-04-15 06:11] LABS: Albumin * 2.2 gm/dl (3.4-5.0); Anion Gap 17.3 mmol/L (6.8-13.8); BUN/Creatinine Ratio 7.3 (9.0-21.6); Bilirubin, Total 13.3 mg/dL (0.0-1.1); Ca. Corrected For Albumin 8.6 mg/dL (8.4-10.2); Calcium * 7.5 mg/dL (7.9-10.9); Carbon Dioxide 17.4 mmol/L (24-32.6); Potassium 3.7 mmol/L (3.4-4.6); Total Protein 5.7 gm/dL (6.2-8.2)
[2019-04-15 06:20] LABS: Hematocrit 27.3 % (37.0-47.0); Hemoglobin 9.5 gm/dL (12.5-16.0); Mean Cell Volume 103.4 fl (78-100); Mean Corpuscular Hgb Conc 34.8 g/dl (32-36); Mean Platelet Volume 12.1 fl (8-12.5); Neutrophil % 78.7 % (42-75.0); Platelet Count 80 K/mm3 (150-450); Red Blood Count 2.64 M/mm3 (4.2-5.4); Red Cell Distribution Width 17.2 % (11.5-14.0); White Blood Count 8.9 K/mm3 (4.0-10.5)
[2019-04-15] MEDS: POTASSIUM CHLORIDE 10 MEQ TABLET.SA PO SCH (08:38)
[2019-04-15 11:02] LABS: Iron 41 mcg/dL (35-120); Transferrin Sat. (% Sat.) 31 % (15-55)
--- NOTE | 2019-04-15 11:02 | DS ---
(1) Abdominal pain Problem: Acute Qualifiers: Abdominal location: periumbilical Qualified Code(s): R10.33 - Periumbilical pain (2) Ascites Diagnosis(s): SBP ruled out. Problem: Acute Qualifiers: Ascites type: other type Qualified Code(s): R18.8 - Other ascites (3) Liver cirrhosis Diagnosis(s): MEJIA vs alcohol Problem: Chronic (4) Leukocytosis Problem: Resolved (5) Hypokalemia Problem: Resolved (6) Hyponatremia Problem: Acute (7) Thrombocytopenia Diagnosis(s): due to HSM Problem: Chronic (8) Urinary tract infection Diagnosis(s): E.Coli and E. fecalis on culture Problem: Acute Qualifiers: Urinary tract infection type: site unspecified Hematuria presence: without hematuria Qualified Code(s): N39.0 - Urinary tract infection, site not specifi ed (9) Umbilical hernia Problem: Chronic Qualifiers: Obstruction and gangrene presence: without obstruction or gangrene Qualified Code(s): K42.9 - Umbilical hernia without obstruction or gangrene Date of Discharge:: 04/15/19 Description of Stay: Keshia Chau is a 58-year-old white female with past medical history of Liver cirrhosis likely secondary to MEJIA versus alcohol, cholecystectomy for chronic cholecystitis, who was admitted on 04/13/2019 because of abdominal pain. 4 days prior to admission the patient started having some dull, lower abdominal pain, 2-3 over 10, not associated with nausea, vomiting, diarrhea, or constipation. Her last bowel movement was this morning. Her friend also noticed that she was getting yellowish on her eyes. On the day of admission her pain got worse 8- 9/10 and she noticed her umbilical hernia which she noticed 2 weeks ago popped out even more. She went to our emergency room where her hernia was reduced easily. Her white blood cell count was elevated, AST and alkaline phosphatase were elevated, ALT was normal but her total bilirubin was 16.7. She was noted to have a distended abdomen. Her ultrasound showed moderate ascites and paracentesis was done and they were able to remove 180 mL of fluid. She was then admitted for further evaluation and treatment. Her ascitic fluid was transudate and did not fulfill criteria for SBP. We started her IVF for hyponatremia anf replaced her K. Her ammonia level was normal and PT was 1.74. She did not have any AMS. We did a CTS of her abdomen and pelvis-IMPRESSION: 1. Findings compatible with cirrhosis and hepatomegaly with coarse heterogenous appearing liver. Underlying malignancy not entirely excluded 2. Splenomegaly and portal hypertension 3. Moderate ascites 4. Additional comments and findings are as above We did send out other labs including AFP, ALICE, Hepatitis panel but are still pending. Her AST/Bilirubin trended down. Her elevated WBC normalized. Her UCS grew E.Coli and E, Fecalis. Her lipid profile showed hyperlipidemia. Will discharge her on lasix/spironalctone/Zetia/low dose propanolol/ Augmentin x 5 more days. She was told that is very important that she stays on a low-salt diet. She will need to see /gastroenterology/hepatology in [facility] this week or next week for follow up. Procedures Performed: see notes below List Procedures: US guided paracentesis Results and Findings: Pending Mircobiology Results 04/13/19 15:15 Blood Blood Culture - Preliminary NO GROWTH 24 HOURS 04/13/19 13:55 Blood Blood Culture - Preliminary NO GROWTH 24 HOURS Lab Pending Results 04/13/19 12:30: WBC 14.6 H, RBC 2.89 L, Hgb 10.4 L, Hct 29.6 L, MCV 102.4 H, MCH 36.0 H, MCHC 35.1, RDW 17.1 H, Plt Count 74 L, MPV 12.1, Immature Gran % (Auto) 0.70 H, Immature Gran # (Auto) 0.10 H, Neutrophils % 86.6 H, Lymphocytes % 5.9 L, Monocytes % 6.5, Eosinophils % 0.0, Basophils % 0.3, Nucleated RBC % 0.0, Neutrophils # 12.7 H, Lymphocytes # 0.87 L, Monocytes # 1.0, Eosinophils # 0.0, Absolute Basophils 0.0 04/13/19 12:30: Sodium 128 L, Plasma Sodium 128 L, Potassium 2.9 L, Chloride 92 L, Carbon Dioxide 21.4 L, Anion Gap 17.5 H, BUN 6, Creatinine 0.59, Est GFR (Non-Af Amer) 112 D, BUN/Creatinine Ratio 10.2, Random Glucose 114 H, Calcium 8.4, Calcium Adj for Albumin 9.0, Total Bilirubin 16.7 H, AST 166 H, ALT 20, Alkaline Phosphatase 227 H, Total Protein 6.8, Albumin 2.8 L, Amylase 29, Lipase 242 04/13/19 12:30: Ammonia Less than 17.0 04/13/19 12:30: PT 17.3 H, INR (Anticoag Therapy) 1.79 H, PTT ([place]) 28.4 04/13/19 12:40: Urine Color Bent, Urine Appearance Slightly cloudy, Urine pH 6.5, Ur Specific [place] 1.020, Urine Protein 30 H, Urine Glucose (UA) 100 H, Urine Ketones 5, Urine Blood 25 H, Urine Nitrate Positive H, Urine Bilirubin 6 H, Urine Ictotest QNS, Prot Sulfosalicylic Acd QNS, Urine Urobilinogen 4 H, Ur Leukocyte Esterase 75 H, Urine RBC None seen, Urine WBC 0-5, Ur Epithelial Cells 10-25 H, Urine Bacteria 2+ H, Urine Culture Comments Culture to follow 04/13/19 14:47: Miscellaneous Cytology Spec. sent to path. 04/13/19 14:47: Fluid Glucose 120 04/13/19 14:47: Fluid Color Yellow, Fluid Appearance Slightly cloudy, Fluid WBC 129, Fluid RBC Greater than 1000.0 H, Fluid Neutrophils 4, Fluid Lymphocytes 96 04/13/19 14:47: Peritoneal Albumin 1.3, Peritoneal LDH 82 04/13/19 14:47: Fluid Total Protein Cancelled 04/13/19 15:15: Direct Bilirubin 14.7 H 04/13/19 16:33: Peritoneal Tot Protein 2.6 04/13/19 22:10: Acetaminophen Less than 0.2 L 04/14/19 05:31: WBC 8.4 D, RBC 2.52 L, Hgb 9.1 L, Hct 25.8 L, MCV 102.4 H, MCH 36.1 H, MCHC 35.3, RDW 17.2 H, Plt Count 64 L, MPV 12.0, Immature Gran % (Auto) 0.60 H, Immature Gran # (Auto) 0.05 H, Neutrophils % 80.9 H, Lymphocytes % 9.0 L, Monocytes % 8.8, Eosinophils % 0.5, Basophils % 0.2, Nucleated RBC % 0.0, Neutrophils # 6.8 H, Lymphocytes # 0.76 L, Monocytes # 0.7, Eosinophils # 0.0, Absolute Basophils 0.0 04/14/19 05:31: Sodium 134, Plasma Sodium 134, Potassium 2.9 L, Chloride 100, Carbon Dioxide 20.2 L, Anion Gap 16.7 H, BUN 4, Creatinine 0.40, Est GFR (Non-Af Amer) 175 H D, BUN/Creatinine Ratio 10.0, Random Glucose 96, Calcium 7.7 L, Calcium Adj for Albumin 8.7, Total Bilirubin 13.7 H, AST 119 H, ALT 17 L, Alkaline Phosphatase 184 H, Total Protein 5.7 L, Albumin 2.3 L, Triglycerides 276 H, Cholesterol 259 H, LDL Cholesterol 196 H, VLDL Cholesterol 55 H, HDL Cholesterol 8 L, Cholesterol/HDL Ratio 32.3 H 04/14/19 05:31: PT 16.9 H, INR (Anticoag Therapy) 1.74 H 04/15/19 05:38: WBC 8.9, RBC 2.64 L, Hgb 9.5 L, Hct 27.3 L, MCV 103.4 H, MCH 36.0 H, MCHC 34.8, RDW 17.2 H, Plt Count 80 L, MPV 12.1, Immature Gran % (Auto) 0.70 H, Immature Gran # (Auto) 0.06 H, Neutrophils % 78.7 H, Lymphocytes % 10.0 L, Monocytes % 9.9 H, Eosinophils % 0.3, Basophils % 0.4, Nucleated RBC % 0.0, Neutrophils # 7.0 H, Lymphocytes # 0.89 L, Monocytes # 0.9, Eosinophils # 0.0, Absolute Basophils 0.0 04/15/19 05:38: Sodium 134, Plasma Sodium 134, Potassium 3.7 D, Chloride 103, Carbon Dioxide 17.4 L, Anion Gap 17.3 H, BUN 3, Creatinine 0.41, Est GFR (Non-Af Amer) 171 H, BUN/Creatinine Ratio 7.3 L, Random Glucose 89, Calcium 7.5 L, Calcium Adj for Albumin 8.6, Total Bilirubin 13.3 H, AST 114 H, ALT 18 L, Alkaline Phosphatase 178 H, Total Protein 5.7 L, Albumin 2.2 L Discharge Location: Home Disposition: Home self-care Condition: Stable Discharge Activity: Activity as tolerated Discharge Diet: Low salt Referrals: Mraia L Winslow MD [Primary Care Provider] - Additional Patient Instructions (free text): Follow up with Dr. Winslow 04/22 at 2:00 p.m. Please make a follow up appointment with [facility], Hepatology department- Ascites, portal hypertension, Liver cirrhosis, Jaundice. Prescriptions (Any new or edited meds): Spironolactone [Aldactone] 25 mg PO DAILY@1100 #30 tab Amox Tr/Potassium Clavulanate [Augmentin 500-125 Tablet] 500 mg PO BID #10 tab Lactulose [Enulose] 10 g PO BID #1 syrup Furosemide 100 mg PO DAILY@1100 #30 tab Propranolol HCl [Inderal] 10 mg PO Q12H #60 tab Calcium Carbonate [Tums] 500 mg PO QID PRN #60 tab.chew PRN Reason: Dyspepsia Ezetimibe [Zetia] 10 mg PO HS #30 tab Complete Home Medications List: Complete Home Medication List: Multivitamin [Multivitamins] 1 ea PO DAILY 03/30/17 acetaminophen 325 mg tablet 325 mg PO Q6H PRN 05/01/18 Amox Tr/Potassium Clavulanate [Augmentin 500-125 Tablet] 500 mg PO BID #10 tab 04/15/19 Calcium Carbonate [Tums] 500 mg PO QID PRN #60 tab.chew 04/15/19 Ezetimibe [Zetia] 10 mg PO HS #30 tab 04/15/19 Furosemide 100 mg PO DAILY@1100 #30 tab 04/15/19 Lactulose [Enulose] 10 g PO BID #1 syrup 04/15/19 Propranolol HCl [Inderal] 10 mg PO Q12H #60 tab 04/15/19 Spironolactone [Aldactone] 25 mg PO DAILY@1100 #30 tab 04/15/19 Amb Orders for Discharge: Comprehensive Metabolic Panel Time Frame: 1 Week, Location: Laboratory
[2019-04-15 11:25] LABS: Folate 4.6 ng/mL (8.6-58.9)
[2019-04-15] MEDS ORDERED: AMOX TR/POTASSIUM CLAVULANATE 500 MG TABLET PO SCH (11:30)
[2019-04-15] MEDS ORDERED: SPIRONOLACTONE 25 MG TABLET PO SCH (11:30)
[2019-04-15] MEDS ORDERED: PROPRANOLOL HCL 10 MG TABLET PO SCH (11:30)
[2019-04-15] MEDS ORDERED: FUROSEMIDE PO SCH ×2 (11:30)
[2019-04-15 11:35] VITALS: BP 136/69
[2019-04-15] MEDS ORDERED: LACTULOSE 10 G/15 ML SYRUP PO SCH (21:00)
[2019-04-15] MEDS ORDERED: EZETIMIBE 10 MG TABLET PO SCH (21:00)
[2019-04-16] MEDS ORDERED: FUROSEMIDE 80 MG TABLET PO SCH (11:00)
[2019-04-17 19:47] LABS: Hepatitis C Antibody NON-REACTIVE (NON-REACTIVE); Hepatitis Panel Confirmation DNR
[2019-04-18 07:24] LABS: Hepatitis B Surface Antigen NON-REACTIVE (NON-REACTIVE)
== END 2019-04-15 12:32 | disposition home or self-care (01) | DRG 441 ==
LOC: ER 11:51 → MS 15:10
PROVIDERS: ADMIT Internal Medicine; ATTEND Internal Medicine
DX: K42.9 Umbilical hernia without obstruction or gangrene; R10.33 Periumbilical pain; D69.6 Thrombocytopenia, unspecified; K70.31 Alcoholic cirrhosis of liver with ascites; K75.81 Nonalcoholic steatohepatitis (NASH); B96.20 Unspecified Escherichia coli [E. coli] as the cause of diseases classified elsewhere; E87.1 Hypo-osmolality and hyponatremia; N39.0 Urinary tract infection, site not specified; E87.6 Hypokalemia; K72.00 Acute and subacute hepatic failure without coma
CPT/HCPCS: 36415; 49083; 74019; 74020; 74177; 76705; 80053; 80061; 80074; 80329; 81001; 82042; 82105; 82140; 82150; 82248; 82607; 82728; 82746; 83540; 83550; 83615; 83690; 84075; 84155; 84157; 85025; 85610; 85730; 86038; 86695; 86696; 87040; 87070; 87077; 87086; 87186; 87205; 88108; 88305; 89051; 93005; 99285; G0480; Q9963; Q9967